=== PATIENT | male | born 2000 | race Caucasian/White ===

== ENCOUNTER 2025-01-06 11:22 | Emergency (ER) | payer BC ==
[~2025-01-06] VITALS: Ht 182.9 cm; Wt 92.2 kg
[2025-01-06 13:00] VITALS: BP 125/70; O2SAT 98
[2025-01-06 13:26] VITALS: TEMP 98.7
== END 2025-01-06 13:27 | disposition home or self-care (01) ==
LOC: M ED 11:22
DX: R56.9 Unspecified convulsions (principal); F42.9 Obsessive-compulsive disorder, unspecified; Z79.899 Other long term (current) drug therapy